=== PATIENT | male | born 1960 | race Caucasian/White ===

== ENCOUNTER → 2022-07-05 07:39 | Outpatient (BNVA) | payer BC, SELFPAY | PROVIDERS: Family Provider Family Medicine; PCP Family Medicine; Visit Provider Family Medicine | DX: Z00.00 Encounter for general adult medical examination without abnormal findings (principal); Z12.5 Encounter for screening for malignant neoplasm of prostate | CPT/HCPCS: 80053; 80061; G0103 ==

== ENCOUNTER 2022-08-28 08:09 | Outpatient (CLI) | payer BC, SELFPAY ==
--- NOTE | 2022-08-28 08:45 | US_ITS ---
WS: [id number] INDICATION: LEFT superior scapula soft tissue mass TECHNIQUE: Ultrasound soft tissue area of concern FINDINGS: Ultrasound LEFT shoulder soft tissue area of concern. In the area of concern, LEFT lateral shoulder, there is a hypoechoic nodule measuring approximately 1 .2 x 1.4 x 0.8 cm with irregular margins. Tiny amount of peripheral vascularity. This is nonspecific and consider further evaluation with ultrasound-guided biopsy or further evaluation with contrast-enh anced CT for better anatomic detail. US/US soft tissue/extremity [id number] IMPRESSION: Hypoechoic irregular lobulated nodule in the area of concern measur ing 1.2 x 1.4 0.8 cm. Consider either ultrasound-guided biopsy or contrast-enha nced CT for better anatomic detail
== END 2022-08-28 08:10 | disposition home or self-care (01) ==
PROVIDERS: PCP Family Medicine; Visit Provider Family Medicine
DX: M79.89 Other specified soft tissue disorders (principal)
CPT/HCPCS: 76882

== ENCOUNTER → 2022-11-28 08:23 | Outpatient (BNVA) | payer BC, SELFPAY | PROVIDERS: PCP Family Medicine; Visit Provider Clinical Nurse Specialist Adult Health | DX: J06.9 Acute upper respiratory infection, unspecified (principal) | CPT/HCPCS: 87426 ==

== ENCOUNTER → 2023-06-19 10:39 | Outpatient (BNVA) | payer BC, SELFPAY | PROVIDERS: PCP Family Medicine; Visit Provider Family Medicine | DX: M54.12 Radiculopathy, cervical region (principal); N52.9 Male erectile dysfunction, unspecified; Z13.6 Encounter for screening for cardiovascular disorders; Z00.00 Encounter for general adult medical examination without abnormal findings | CPT/HCPCS: 80053; 80061 ==

== ENCOUNTER → 2024-10-25 12:18 | Outpatient (BNVA) | payer MEDICARE, SELFPAY | PROVIDERS: PCP Family Medicine; Visit Provider Family Medicine | DX: Z12.5 Encounter for screening for malignant neoplasm of prostate (principal) | CPT/HCPCS: 80053; 80061; G0103 ==

== ENCOUNTER → 2025-06-27 11:36 | Outpatient (BNVA) | payer MEDICARE, SELFPAY | PROVIDERS: PCP Family Medicine; Visit Provider Family Medicine | DX: Z00.00 Encounter for general adult medical examination without abnormal findings (principal); Z12.5 Encounter for screening for malignant neoplasm of prostate | CPT/HCPCS: 80053; 80061; G0103 ==